=== PATIENT | male | born 2000 | race Caucasian/White ===

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

== ENCOUNTER 2020-06-20 20:58 | Inpatient (IN) | payer BC ==
[~2020-06-20 20:58] MED LIST: Iopamidol-370 76% 500 ML 1 ML ONE
[2020-06-20] MEDS ORDERED: Rocuronium Bromide 10 MG/ML (10ML VIAL) ONE (21:00)
[2020-06-20] MEDS ORDERED: Propofol 1,000 MG/100 ML VIAL IV ONE (21:09)
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
[2020-06-20 21:36] LABS: Hemoglobin 14.9 g/dL (14.0-18.0); Mean Corpuscular HGB CONC 33.6 g/dL (32.0-36.0); Mean Corpuscular Hemoglobin 32.6 pg (27.0-31.0); Mean Platelet Volume 7.5 fL (7.4-10.4); Platelet Count 269 thou/uL (130-400); RBC Distribution Width 11.7 % (11.5-14.5); Red Blood Cell (RBC) Count 4.56 mill/uL (4.70-6.10); White Blood Cell (WBC) Count 26.9 thou/uL (4.8-10.8)
[2020-06-20] MEDS ORDERED: CEFAZOLIN 2 GM in Premix Bag 1 BAG IVPB SCH (21:45)
[2020-06-20 21:48] LABS: ALT (SGPT) 28 U/L (8-55); AST (SGOT) 43 U/L (5-34); Albumin 4.5 g/dL (3.5-5.0); Alcohol Less than 10 mg/dL (Less than 10); Alkaline Phosphatase 81 U/L (40-110); Anion Gap 19 mmol/L (10-20); BUN (Urea Nitrogen) 15 mg/dL (8.9-20.6); Bilirubin, Total 0.7 mg/dL (0.2-1.2); Calc. Creatinine Clearance 0 mL/min (70-130); Calcium 8.6 mg/dL (7.8-10.44); Carbon Dioxide 22 mmol/L (22-29); Chloride 102 mmol/L (98-107); Globulin 2.6 g/dL (2.4-3.5); Glucose 179 mg/dL (70-105); Potassium 3.5 mmol/L (3.5-5.1); Protein, Total 7.1 g/dL (6.0-8.3); Sodium 139 mmol/L (136-145)
[2020-06-20 21:55] LABS: Band 5 % (5-11); Eosinophils 1 % (0-10); Lymphocytes 9 % (21-51); MDiff Complete? YES; Monocytes 4 % (0-10); Neutrophil 81 % (42-75)
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
[2020-06-20 22:19] LABS: Acetaminophen Less than 6.0 mcg/mL (10.0-30.0); Alcohol Less than 10 mg/dL (Less than 10); CK (CPK) 473 U/L (30-200); Salicylate Less than 8.0 mg/dL (15.0-30.0)
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
[2020-06-20] MEDS ORDERED: Midazolam HCl 5 mg/ml Vial ONE ×2 (22:22→22:58)
[2020-06-20] MEDS ORDERED: Boostrix 0.5 ML (Tdap) VIAL ONE (22:40)
[2020-06-20] MEDS ORDERED: levETIRAcetam in NS 100 ML ONE (22:40)
[2020-06-20 22:48] LABS: Bilirubin Negative (Negative); Blood, Urine Large (Negative); Glucose, Urine (Dipstick) 250 mg/dL (Negative); Ketone, Urine Negative (Negative); Leukocyte Negative (Negative); Nitrite Negative (Negative); Protein, Urine (Dipstick) Negative (Neg-Trace); Urobilinogen 0.2 mg/dL (Less than 2); pH, Urine 5.5 (5.0-9.0)
[2020-06-20 22:50] LABS: Clarity Clear (Clear)
[2020-06-20 22:51] LABS: Specific Gravity, Urine 1.017 (1.002-1.036)
[2020-06-20 22:58] LABS: Bacteria/HPF None Seen HPF (None Seen); RBC/HPF 0-3 HPF (0-3); Squamous Epithelial 0-3 HPF (0-3); WBC/HPF None Seen HPF (0-3)
[2020-06-20 22:59] LABS: Amphetamine Not Detected (NotDetected); Barbiturates Screen Not Detected (NotDetected); Benzodiazepine Screen Not Detected (NotDetected); Cocaine Metabolite Screen Not Detected (NotDetected); Medtox Control Line Valid? VALID (VALID); Medtox Reader # READER 4; Methadone Not Detected (NotDetected); Methamphetamine Not Detected (NotDetected); Opiate Screen Not Detected (NotDetected); Oxycodone Screen Not Detected (NotDetected); Phencyclidine (PCP) Not Detected (NotDetected); THC/Cannabinoid Screen Detected (NotDetected); Tricyclic Screen Not Detected (NotDetected)
[2020-06-20] MEDS ORDERED: Acetaminophen 650 MG Suppository ONE (23:10)
[2020-06-20] MEDS ORDERED: Fentanyl 100 MCG/2 ML VIAL ONE (23:18)
[2020-06-21] MEDS ORDERED: Midazolam HCl 5 mg/ml Vial ONE (00:10)
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
[2020-06-21 00:17] LABS: SARS-CoV-2 NAA Rapid Test Not Detected (NotDetected)
[2020-06-21] MEDS ORDERED: Propofol 1,000 MG/100 ML VIAL IV ONE ×2 (00:30→16:31)
[2020-06-21] MEDS ORDERED: Promethazine HCl 25 MG/ML VIAL IM PRN ×2 (00:59)
[2020-06-21] MEDS ORDERED: Dextrose 5% in Water 1,000 ML IV PRN (00:59)
[2020-06-21] MEDS ORDERED: hydrALAZINE 20 MG/ML VIAL SLOW IVP PRN (00:59)
[2020-06-21] MEDS ORDERED: Dextrose 50% Abboject 50 ML SYRINGE SLOW IVP PRN (00:59)
[2020-06-21] MEDS ORDERED: Ventilator Sedation Protocol 1 EACH FS SCH (00:59)
[2020-06-21] MEDS ORDERED: Ondansetron PF 4 MG/2 ML Vial IVP PRN (00:59)
[2020-06-21] MEDS ORDERED: Ondansetron ODT 4 MG TAB PO PRN (00:59)
[2020-06-21 01:04] VITALS: BMI 28.3
[2020-06-21] MEDS ORDERED: fentaNYL Citrate/PF 2,000 MCG in Sodium Chloride 0.9% 60 ML IV SCH (01:15)
[2020-06-21] MEDS ORDERED: Morphine 2 MG/ML VIAL SLOW IVP PRN (01:15)
[2020-06-21] MEDS ORDERED: Propofol BOLUS 1,000 MG/100 ML VIAL IV PRN (01:15)
[2020-06-21] MEDS ORDERED: DISCONTINUE PREVIOUS NARCOTIC PAIN MEDICATIONS AND BENZODIAZEPINES FS SCH (01:15)
[2020-06-21] MEDS ORDERED: Fentanyl BOLUS 250 ML IVPB PRN (01:15)
[2020-06-21] MEDS ORDERED: Lorazepam 2 MG/ML VIAL SLOW IVP PRN (01:15)
[2020-06-21] MEDS: levETIRAcetam in NS 1,000 MG in Premix Bag 1 BAG IVPB SCH (01:26)
[2020-06-21] MEDS: Sodium Chloride 0.9% 1,000 ML IV SCH ×3 (01:27→21:47)
[2020-06-21] MEDS: Propofol 1,000 MG/100 ML VIAL IV PRN ×4 (01:40→12:00)
[2020-06-21] MEDS ORDERED: Acetaminophen 650 MG/20.3 ML UDCUP PO PRN (03:26)
[2020-06-21 04:19] LABS: #Lymphocytes 2.7 thou/uL (1.20-3.40); #Monocytes 1.3 thou/uL (0.11-0.59); #Neutrophils 14.3 thou/uL (1.40-6.50); %Basophils 0.2 % (0.0-1.0); %Eosinophils 0.1 % (0.0-10.0); %Lymphocytes 14.6 % (21.0-51.0); %Neutrophils 78.1 % (42.0-75.0); Hemoglobin 13.4 g/dL (14.0-18.0); Mean Corpuscular HGB CONC 34.7 g/dL (32.0-36.0); Mean Corpuscular Hemoglobin 32.2 pg (27.0-31.0); Mean Corpuscular Volume 92.8 fL (78.0-98.0); Mean Platelet Volume 7.8 fL (7.4-10.4); Platelet Count 212 thou/uL (130-400); RBC Distribution Width 11.7 % (11.5-14.5); Red Blood Cell (RBC) Count 4.16 mill/uL (4.70-6.10); White Blood Cell (WBC) Count 18.3 thou/uL (4.8-10.8)
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
[2020-06-21 04:39] LABS: Lactic Acid 3.1 mmol/L (0.5-2.2)
[2020-06-21 04:40] LABS: Anion Gap 17 mmol/L (10-20); BUN (Urea Nitrogen) 14 mg/dL (8.9-20.6); CK (CPK) 1082 U/L (30-200); Calc. Creatinine Clearance 142 mL/min (70-130); Calcium 8.4 mg/dL (7.8-10.44); Carbon Dioxide 21 mmol/L (22-29); Chloride 105 mmol/L (98-107); Glucose 93 mg/dL (70-105); Magnesium 1.7 mg/dL (1.6-2.6); Phosphorus 2.5 mg/dL (2.3-4.7); Potassium 3.8 mmol/L (3.5-5.1); Sodium 139 mmol/L (136-145)
[2020-06-21 08:11] LABS: Actual Bicarbonate (HCO3a) 23.2 mEq/L (22-28); Base Excess (BEa) 1.2 mEq/L (-2.0 to +3.0); CO2 Tension 29.8 mmHg (35.0-45.0); Calcium, Ionized (arterial) 1.12 mmol/L (1.12-1.30); Carboxyhemoglobin (COHb) 0.4 gm% (0.0-3.0); Hemoglobin (Hb) 13.9 g/dL (14.0-18.0); O2 Tension (PaO2), arterial 134.5 mmHg (80.0-100.0); Potassium - ABG Lab 3.43 mmol/L (3.70-5.30); pH, Arterial 7.51 (7.35-7.45)
[2020-06-21] MEDS: Famotidine/PF 20 mg/2ml Vial SLOW IVP SCH ×2 (08:13→21:20)
[2020-06-21] MEDS: levETIRAcetam in NS 500 MG in Premix Bag 1 BAG IVPB SCH ×2 (08:13→21:20)
[2020-06-21 08:16] LABS: Puncture Site RRA
[2020-06-21] MEDS ORDERED: Potassium Phosphate 15 MMOL in Sodium Chloride 0.9% 250 ML 250 ML IVPB SCH (08:30)
[2020-06-21] MEDS ORDERED: Magnesium 2 GM/50 ML 2 GM in Premix Bag 1 BAG IVPB SCH (08:30)
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
--- NOTE | 2020-06-21 09:56 | RAD ---
PORTABLE CHEST: HISTORY: Pneumothorax, aspiration followup. COMPARISON: Exam of 06/20/2020 at 9:17 p.m. FINDINGS/IMPRESSION: There is opacification of the right apical region which may represent contusion change. No significa nt pneumothorax identified by plain film. Patchy atelectasis or infiltrate in the left lung base. E T tube and NG Tube remain in place. POS: [facility]
[2020-06-21 10:52] LABS: Actual Bicarbonate (HCO3a) 24.2 mEq/L (22-28); Base Excess (BEa) 0.6 mEq/L (-2.0 to +3.0); CO2 Tension 35.8 mmHg (35.0-45.0); Calcium, Ionized (arterial) 1.12 mmol/L (1.12-1.30); Carboxyhemoglobin (COHb) 0.1 gm% (0.0-3.0); Hemoglobin (Hb) 13.7 g/dL (14.0-18.0); O2 Tension (PaO2), arterial 163.6 mmHg (80.0-100.0); Potassium - ABG Lab 3.83 mmol/L (3.70-5.30); pH, Arterial 7.45 (7.35-7.45)
[2020-06-21 10:53] LABS: Puncture Site RRA
[2020-06-21] MEDS ORDERED: carBAMazepine 200 MG TAB PO SCH (12:00)
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
[2020-06-21] MEDS ORDERED: Acetaminophen 325 MG TAB PO SCH (12:45)
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
--- NOTE | 2020-06-21 13:39 | RAD ---
SUPINE ABDOMEN: Date: 06/21/2020 INDICATION: NG tube placement. FINDINGS/IMPRESSION: A Dobbhoff-type feeding tube has been placed. The tube passes through the EG junction and coils withi n the upper gastric fundus. The tip is under the left hemidiaphragm and points to the EG junction in the region of the cardia. Bowel gas pattern is unremarkable with scattered stool and gas in the colon. POS: [facility]
[2020-06-21] MEDS: carBAMazepine 200 MG TAB PO SCH ×2 (14:15→21:20)
[2020-06-21] MEDS: Acetaminophen 325 MG/10.15 ML UDCUP PO SCH ×2 (14:15→18:31)
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
[2020-06-21] MEDS: Senokot S 8.6-50 MG TAB PO SCH (21:20)
[2020-06-21] MEDS: Acetaminophen/Codeine 30-300mg Tablet PO PRN (21:21)
[2020-06-22] MEDS: Acetaminophen 325 MG/10.15 ML UDCUP PO SCH ×4 (01:31→18:05)
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
[2020-06-22 04:14] LABS: #Basophils 0.1 thou/uL (0.0-0.2); #Eosinphils 0.1 thou/uL (0.0-0.7); #Lymphocytes 2.1 thou/uL (1.20-3.40); #Monocytes 0.9 thou/uL (0.11-0.59); #Neutrophils 7.1 thou/uL (1.40-6.50); %Basophils 0.7 % (0.0-1.0); %Eosinophils 0.6 % (0.0-10.0); %Lymphocytes 20.2 % (21.0-51.0); %Neutrophils 69.4 % (42.0-75.0); Mean Corpuscular HGB CONC 33.8 g/dL (32.0-36.0); Mean Corpuscular Hemoglobin 31.9 pg (27.0-31.0); Mean Corpuscular Volume 94.5 fL (78.0-98.0); Mean Platelet Volume 7.3 fL (7.4-10.4); Platelet Count 202 thou/uL (130-400); RBC Distribution Width 11.6 % (11.5-14.5); Red Blood Cell (RBC) Count 4.08 mill/uL (4.70-6.10); White Blood Cell (WBC) Count 10.3 thou/uL (4.8-10.8)
[2020-06-22] MEDS: Acetaminophen/Codeine 30-300mg Tablet PO PRN ×4 (04:31→22:08)
[2020-06-22 04:34] LABS: Anion Gap 11 mmol/L (10-20); BUN (Urea Nitrogen) 7 mg/dL (8.9-20.6); Calc. Creatinine Clearance 181 mL/min (70-130); Calcium 8.5 mg/dL (7.8-10.44); Carbon Dioxide 25 mmol/L (22-29); Chloride 108 mmol/L (98-107); Glucose 97 mg/dL (70-105); Magnesium 2.2 mg/dL (1.6-2.6); Phosphorus 2.7 mg/dL (2.3-4.7); Potassium 3.5 mmol/L (3.5-5.1); Sodium 140 mmol/L (136-145)
[2020-06-22] MEDS: carBAMazepine 200 MG TAB PO SCH ×3 (06:19→21:02)
[2020-06-22] MEDS: Sodium Chloride 0.9% 1,000 ML IV SCH (06:38)
--- NOTE | 2020-06-22 07:39 | PRG ---
DATE OF SERVICE: I saw Carlos Wagner in his ICU room this morning. He is becoming more and more alert and requiring less sedation. Overnight, the maximum temperature ICU recorded is 99.6, blood pressures have been 110s to 120s, and heart rates in the 50s to 90s. Mr. Wagner opens his eyes on his exam. He moves all extremities. He follows commands. However, becomes a bit agitated and tries to get up out of bed. The unusual left-sided C2 fracture extends through the foramen transversarium. It may be there that there is some slight indentation in the C2 segment of the vertebral arteries. Yet, there is not an obvious flap and if there is any change in diameter, it is very gradual. I think this is low likelihood to be dissection, but it is possible. I would be happy if the patient needed to be on aspirin. We can probably start with 81 mg now and go to 325 daily in another week. Mr. Wagner is going to have some behavioral issues it seems and may need to be in brain injury rehabilitation. The punctate areas of hemorrhage in his brain are suggestive of some diffuse axonal injury. He will need to stay in his collar for cervical fractures including C2 and C7. The transverse process fractures in the lumbar spine did not require any treatment at all. Job ID: [id number] [facility]
[2020-06-22] MEDS ORDERED: Potassium Phosphate 15 MMOL in Sodium Chloride 0.9% 250 ML 250 ML IVPB SCH (07:45)
[2020-06-22] MEDS: Polyethylene Glycol 3350 17 GM Packet PO SCH (08:13)
[2020-06-22] MEDS: Senokot S 8.6-50 MG TAB PO SCH ×2 (08:13→21:02)
[2020-06-22] MEDS: Famotidine 20 MG TAB PO SCH ×2 (08:13→21:02)
[2020-06-22] MEDS: levETIRAcetam in NS 500 MG in Premix Bag 1 BAG IVPB SCH ×2 (09:56→21:02)
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
--- NOTE | 2020-06-22 14:23 | PDOC.BPN ---
- Brief Progress Note Encounter Date: 06/22/20 Encounter Time: 07:25 Neurosurgery team was contacted by the trauma team about a new finding of a C2 vertebral artery injury noted by Radiology this morning. The information was conveyed to the patients neurosurgery team in the morning of 06/22/20 and is new. The previous CTA read demonstrated no injury. They are aware of the change in the CTA read and we are awaiting further recommendations from the neurosurgery team. Nati Zuniga PA-C
[2020-06-22] MEDS: diphenhydrAMINE 50 MG/ML VIAL IVP PRN (21:01)
[2020-06-23] MEDS: Acetaminophen 325 MG/10.15 ML UDCUP PO SCH ×5 (00:28→23:49)
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
[2020-06-23] MEDS: diphenhydrAMINE 50 MG/ML VIAL IVP PRN ×2 (02:46→11:58)
[2020-06-23 03:14] LABS: #Basophils 0.1 thou/uL (0.0-0.2); #Eosinphils 0.2 thou/uL (0.0-0.7); #Lymphocytes 2.1 thou/uL (1.20-3.40); #Neutrophils 7.3 thou/uL (1.40-6.50); %Basophils 0.5 % (0.0-1.0); %Eosinophils 1.5 % (0.0-10.0); %Lymphocytes 19.8 % (21.0-51.0); %Monocytes 9.6 % (0.0-10.0); %Neutrophils 68.6 % (42.0-75.0); Hemoglobin 14.3 g/dL (14.0-18.0); Mean Corpuscular HGB CONC 34.6 g/dL (32.0-36.0); Mean Corpuscular Hemoglobin 33.5 pg (27.0-31.0); Mean Corpuscular Volume 96.8 fL (78.0-98.0); Mean Platelet Volume 7.5 fL (7.4-10.4); Platelet Count 196 thou/uL (130-400); RBC Distribution Width 11.6 % (11.5-14.5); Red Blood Cell (RBC) Count 4.26 mill/uL (4.70-6.10); White Blood Cell (WBC) Count 10.6 thou/uL (4.8-10.8)
[2020-06-23 04:00] LABS: Anion Gap 17 mmol/L (10-20); BUN (Urea Nitrogen) 9 mg/dL (8.9-20.6); Calc. Creatinine Clearance 165 mL/min (70-130); Carbon Dioxide 22 mmol/L (22-29); Chloride 106 mmol/L (98-107); Glucose 91 mg/dL (70-105); Magnesium 2.1 mg/dL (1.6-2.6); Phosphorus 3.5 mg/dL (2.3-4.7); Potassium 4.4 mmol/L (3.5-5.1); Sodium 141 mmol/L (136-145)
[2020-06-23] MEDS: carBAMazepine 200 MG TAB PO SCH (06:40)
--- NOTE | 2020-06-23 07:25 | PRG ---
DATE OF SERVICE: 06/23/2020 Neurosurgery progress note. I saw Carlos Wagner in the intermediate care unit this morning. He was resting comfortably with his nurse at bedside as I entered the room. He used a few expletives when I tried to wake him up. Among the electronically recorded vital signs, I see 99.6 is the highest temperature. The blood pressures have ranged in the 100s to 120s. When I do stimulate Mr. Wagner enough to wake up, he moves all 4 extremities quite well and he continues to use colorful language referring to me. Mr. Wagner had some diffuse axonal injury in the brain. He may have some behavioral cognitive, mood, and personality changes. The patient in this situation might benefit from brain injury rehabilitation. The problem is impulsivity. Mr. Wagner has a possible vertebral artery dissection for which yesterday I offered use of 81 mg of aspirin daily transitioning to 325 mg in a few days. We will follow up with Mr. Wagner in our Neurosurgery Clinic. I am going to arrange the appropriate followup CT examinations of the brain. Job ID: [id number]
[2020-06-23] MEDS: Aspirin Chewable 81 MG TAB PO SCH (10:16)
[2020-06-23] MEDS: Acetaminophen/Codeine 30-300mg Tablet PO PRN (10:16)
[2020-06-23] MEDS: Famotidine 20 MG TAB PO SCH ×2 (10:17→23:50)
[2020-06-23] MEDS: Senokot S 8.6-50 MG TAB PO SCH ×2 (10:17→23:50)
[2020-06-23] MEDS: Polyethylene Glycol 3350 17 GM Packet PO SCH (10:18)
[2020-06-23] MEDS: levETIRAcetam in NS 500 MG in Premix Bag 1 BAG IVPB SCH ×2 (10:18→21:46)
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
[2020-06-23] MEDS ORDERED: Haloperidol Lactate 5 MG/ML VIAL SLOW IVP PRN (15:40)
--- NOTE | 2020-06-23 17:54 | RAD ---
XR Abdomen 1 View/KUB History: Dobbhoff tube placement Comparison: Radiograph 2 days prior Findings: A weighted feeding tube is in place with focal kink at the gastric antrum with retrograde p osition and tip at the gastric fundus. Impression: Malposition of the weighted feeding tube. Retraction and re-advancement recommended.
--- NOTE | 2020-06-23 19:55 | RAD ---
XR Abdomen 1 View/KUB History: Dobbhoff tube placement Comparison: Radiograph same day Findings: A weighted feeding tube tip is at the gastric antrum. Focal kink at the gastric fundus with angle approximately 90 degrees. Impression: Weighted feeding tube tip at the gastric antrum. Recommend advancement.
[2020-06-24] MEDS: Acetaminophen 325 MG/10.15 ML UDCUP PO SCH ×2 (07:33→14:09)
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
[2020-06-24] MEDS ORDERED: Ketorolac Tromethamine 30 MG/ML VIAL IVP SCH (09:30)
[2020-06-24] MEDS: levETIRAcetam in NS 500 MG in Premix Bag 1 BAG IVPB SCH (09:42)
[2020-06-24] MEDS: Aspirin Chewable 81 MG TAB PO SCH (11:57)
[2020-06-24] MEDS: Famotidine 20 MG TAB PO SCH (11:57)
[2020-06-24] MEDS: Polyethylene Glycol 3350 17 GM Packet PO SCH (12:05)
[2020-06-24] MEDS: Senokot S 8.6-50 MG TAB PO SCH (14:09)
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
[2020-06-24] MEDS: Acetaminophen/Codeine 30-300mg Tablet PO PRN (18:01)
[2020-06-25] MEDS: Acetaminophen/Codeine 30-300mg Tablet PO PRN ×3 (00:23→16:50)
[2020-06-25] MEDS: Pregabalin 50 MG CAP PO SCH ×3 (00:24→21:22)
[2020-06-25] MEDS: Famotidine 20 MG TAB PO SCH ×3 (00:24→21:22)
[2020-06-25] MEDS: Senokot S 8.6-50 MG TAB PO SCH ×3 (00:25→21:23)
[2020-06-25] MEDS: levETIRAcetam in NS 500 MG in Premix Bag 1 BAG IVPB SCH ×3 (00:25→21:23)
[2020-06-25] MEDS: Acetaminophen 325 MG/10.15 ML UDCUP PO SCH ×5 (00:26→19:11)
[2020-06-25 03:53] VITALS: BP 127/74
--- NOTE | 2020-06-25 07:23 | PRG ---
DATE OF SERVICE: 06/25/2020 I saw Carlos Wagner in the intermediate care unit this morning. He has moved from one bed to another to make room for other patients. He is awaiting a floor bed. Tube feeds were stopped, and he is beginning to take p.o. yesterday. There is low-grade temperature with a maximum reading of 100.2 degrees Fahrenheit recorded in his electronic medical record. Blood pressure has been in the 100s to 120s. Mr. Wagner wakes on examination, and he answers questions. He is beginning to behave more appropriately as time passes. He was off balance when he tried to stand yesterday. Mr. Wagner will need rehab to regain his balance to become safe for activities of daily living and to cope with the acute changes secondary to his brain injury. I do not recommend neurosurgical intervention. Job ID: [id number]
[2020-06-25] MEDS: Polyethylene Glycol 3350 17 GM Packet PO SCH (07:58)
[2020-06-25] MEDS: Aspirin Chewable 81 MG TAB PO SCH (07:58)
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
[2020-06-26] MEDS: Acetaminophen 325 MG/10.15 ML UDCUP PO SCH ×3 (02:28→12:09)
[2020-06-26] MEDS: Polyethylene Glycol 3350 17 GM Packet PO SCH (08:18)
[2020-06-26] MEDS: levETIRAcetam in NS 500 MG in Premix Bag 1 BAG IVPB SCH (08:18)
[2020-06-26] MEDS: Famotidine 20 MG TAB PO SCH (08:19)
[2020-06-26] MEDS: Aspirin Chewable 81 MG TAB PO SCH (08:19)
[2020-06-26] MEDS: Pregabalin 50 MG CAP PO SCH (08:19)
[2020-06-26] MEDS: Senokot S 8.6-50 MG TAB PO SCH (08:19)
[2020-06-26] MEDS ORDERED: Nicotine 14 MG PATCH TD SCH (10:45)
[2020-06-26] MEDS: Acetaminophen/Codeine 30-300mg Tablet PO PRN (10:50)
[2020-06-26 12:54] VITALS: TEMP 97.1
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
--- NOTE | 2020-07-04 14:40 | EKG ---
Test Reason : Blood Pressure : / mmHG Vent. Rate : 124 BPM Atrial Rate : 124 BPM P-R Int : 130 ms QRS Dur : 108 ms QT Int : 344 ms P-R-T Axes : 071 077 063 degrees QTc Int : 494 ms Sinus tachycardia Incomplete right bundle branch block Borderline ECG Confirmed by KRAIG DALLAS ([id number]), photo editor LONNY RAINES ([id number]) on 07/04/2020 2:40:00 PM Referred By: Confirmed By:KRAIG DALLAS
== END 2020-06-26 14:02 | DRG 963 ==
LOC: ERS 20:58 → CCU 22:43 → IMCU/EMU 06-23 04:04
PROVIDERS: ADMIT Surgery; ATTEND Surgery
PROC: 5A1935Z Respiratory Ventilation, Less than 24 Consecutive Hours (ICD-10-PCS; principal; 2020-06-20)
PROC: 0BH17EZ Insertion of Endotracheal Airway into Trachea, Via Natural or Artificial Opening (ICD-10-PCS; 2020-06-20)
DX: S06.6X9A Traumatic subarachnoid hemorrhage with loss of consciousness of unspecified duration, initial encounter (principal); J96.00 Acute respiratory failure, unspecified whether with hypoxia or hypercapnia; S27.0XXA Traumatic pneumothorax, initial encounter; I77.74 Dissection of vertebral artery; S12.600A Unspecified displaced fracture of seventh cervical vertebra, initial encounter for closed fracture; S12.100A Unspecified displaced fracture of second cervical vertebra, initial encounter for closed fracture; S12.500A Unspecified displaced fracture of sixth cervical vertebra, initial encounter for closed fracture; S22.019A Unspecified fracture of first thoracic vertebra, initial encounter for closed fracture; S27.321A Contusion of lung, unilateral, initial encounter; R40.2342 Coma scale, best motor response, flexion withdrawal, at arrival to emergency department; R40.2122 Coma scale, eyes open, to pain, at arrival to emergency department; R40.2222 Coma scale, best verbal response, incomprehensible words, at arrival to emergency department; S14.109A Unspecified injury at unspecified level of cervical spinal cord, initial encounter; F17.210 Nicotine dependence, cigarettes, uncomplicated; G40.409 Other generalized epilepsy and epileptic syndromes, not intractable, without status epilepticus; E87.6 Hypokalemia; E83.39 Other disorders of phosphorus metabolism; Z20.828 Contact with and (suspected) exposure to other viral communicable diseases; Z78.1 Physical restraint status; Y92.411 Interstate highway as the place of occurrence of the external cause; V43.52XA Car driver injured in collision with other type car in traffic accident, initial encounter
CPT/HCPCS: 31500; 36415; 36416; 36600; 51702; 70450; 70486; 70496; 70498; 71045; 71260; 72125; 74018; 74177; 80048; 80053; 80306; 80307; 81003; 81015; 82550; 82805; 83605; 83735; 84100; 85025; 90471; 90715; 93005; 94002; 94640; 96361; 96365; 96366; 96368; 96375; 96376; 99292; G0390; J0690; J1200; J1630; J1885; J1953; J2250; J2405; J2704; J3010; J3475; J3490; J7050; J7620; Q9967; S0028; U0002

== ENCOUNTER 2020-10-05 19:06 | Outpatient (CLI) | payer BC, OTHER ==
[2020-10-05 21:07] LABS: PTT 28.8 sec (22.0-33.0); Prothrombin Time 10.9 sec (9.5-12.1)
[2020-10-05 21:16] LABS: Hemoglobin 15.2 g/dL (13.5-17.5); Mean Corpuscular HGB CONC 34.2 g/dL (32.0-36.0); Mean Corpuscular Hemoglobin 31.7 pg (27.0-33.0); Mean Corpuscular Volume 92.7 fl (81.2-95.1); Mean Platelet Volume 10.3 fl (7.4-10.4); Platelet Count 297 10x3/uL (150-450); RBC Distribution Width 12.9 % (11.5-14.5); Red Blood Cell (RBC) Count 4.79 10x6/uL (4.32-5.72); White Blood Cell (WBC) Count 10.3 10x3/uL (3.5-10.5)
[2020-10-06 16:47] LABS: SARS-CoV-2 PCR by NAA Not Detected (NotDetected)
== END 2020-10-05 19:07 | disposition home or self-care (01) ==
LOC: LABBT 19:06
PROVIDERS: ATTEND Neurological Surgery
DX: Z01.812 Encounter for preprocedural laboratory examination (principal); S12.501A Unspecified nondisplaced fracture of sixth cervical vertebra, initial encounter for closed fracture; S12.601A Unspecified nondisplaced fracture of seventh cervical vertebra, initial encounter for closed fracture; Z20.822 Contact with and (suspected) exposure to COVID-19
CPT/HCPCS: 85027; 85610; 85730; 87635; U0003; U0005

== ENCOUNTER 2020-10-08 10:20 | Day surgery (SDC) | payer BC ==
[2020-10-07 12:55] VITALS: BMI 25.1
[2020-10-08] MEDS ORDERED: Midazolam HCl 2 mg/2 ml Vial ONE ×2 (12:55→12:57)
[2020-10-08] MEDS ORDERED: Fentanyl 100 MCG/2 ML VIAL ONE ×3 (12:57→17:00)
[2020-10-08] MEDS ORDERED: Thrombin 5000 UNITS/5 ML VIAL ONE (13:03)
[2020-10-08] MEDS ORDERED: Lidocaine 1% PF 5 ML VIAL ONE (13:30)
[2020-10-08] MEDS ORDERED: PROPOFOL 200 MG/20 ML VIAL ONE (13:30)
[2020-10-08] MEDS ORDERED: Glycopyrrolate 0.2 MG/ML 5 ML SYRINGE ONE (13:30)
[2020-10-08] MEDS ORDERED: Dexamethasone 20 MG/5 ML VIAL ONE (13:30)
[2020-10-08] MEDS ORDERED: Ondansetron PF 4 MG/2 ML Vial ONE (13:30)
[2020-10-08] MEDS ORDERED: Rocuronium Bromide 10 MG/ML (10ML VIAL) ONE (13:30)
[2020-10-08] MEDS ORDERED: SUGAMMADEX SODIUM 200 MG/2 ML VIAL ONE (16:29)
[2020-10-08] MEDS ORDERED: Meperidine HCl/PF 25 MG/ML VIAL ONE (16:54)
[2020-10-08] MEDS ORDERED: Promethazine HCl 25 MG/ML VIAL ONE (16:56)
[2020-10-08] MEDS ORDERED: Tamsulosin HCl 0.4 MG CAP ONE (18:00)
== END 2020-10-08 19:55 | disposition home or self-care (01) ==
LOC: SDC 10:20
PROVIDERS: ATTEND Neurological Surgery
PROC: 0RG2070 Fusion of 2 or more Cervical Vertebral Joints with Autologous Tissue Substitute, Anterior Approach, Anterior Column, Open Approach (ICD-10-PCS; principal; 2020-10-08)
PROC: 0RT30ZZ Resection of Cervical Vertebral Disc, Open Approach (ICD-10-PCS; principal; 2020-10-08)
PROC: 0RG20A0 Fusion of 2 or more Cervical Vertebral Joints with Interbody Fusion Device, Anterior Approach, Anterior Column, Open Approach (ICD-10-PCS; principal; 2020-10-08)
DX: S12.6 Fracture of seventh cervical vertebra (principal); S12.15 Other traumatic spondylolisthesis of second cervical vertebra; M48.02 Spinal stenosis, cervical region; M54.12 Radiculopathy, cervical region; G40.909 Epilepsy, unspecified, not intractable, without status epilepticus; F10.20 Alcohol dependence, uncomplicated; F12.90 Cannabis use, unspecified, uncomplicated; F17.290 Nicotine dependence, other tobacco product, uncomplicated; V89.2XXD Person injured in unspecified motor-vehicle accident, traffic, subsequent encounter
CPT/HCPCS: 76000; C1713; C1776; J0690; J1100; J2175; J2250; J2405; J2550; J2704; J3010; J3490